=== PATIENT | female | born 1990 | race Caucasian/White ===

== ENCOUNTER 2018-12-14 04:05 | Emergency (ER) | payer MEDICAID ==
[~2018-12-14] VITALS: Ht 162.6 cm; Wt 90.9 kg
[2018-12-14] MEDS ORDERED: CYCL-1 PO (04:32)
[2018-12-14] MEDS ORDERED: ondansetron 4mg rapidly disintigrating tab PO ONE (05:40)
[2018-12-14] MEDS ORDERED: ketorolac trometh inj. 60 MG/2 ML VIAL IM ONE (05:40)
[2018-12-14] MEDS ORDERED: orphenadrine citrate 60mg/2ml inj. IM ONE (05:40)
[2018-12-14] MEDS ORDERED: HYDROcodone/acetaminophen 5mg/325mg tablet PO ONE (05:40)
[2018-12-14] MEDS ORDERED: LIDOcaine 5% patch TP ONE (05:40)
[2018-12-14] MEDS ORDERED: HYDR-3965 PO (07:48)
[2018-12-14] MEDS ORDERED: LIDO700A32 TOP (07:48)
[2018-12-14] MEDS ORDERED: triamcinolone acetonide 40mg/ml inj IM ONE (07:50)
[2018-12-14 08:11] VITALS: BP 129/74
== END 2018-12-14 08:13 | disposition home or self-care (01) ==
LOC: ER 04:06
DX: M53.3 Sacrococcygeal disorders, not elsewhere classified (principal); Z79.899 Other long term (current) drug therapy
CPT/HCPCS: 96372; 99284; J1885; J2360; J2405; J3301

== ENCOUNTER 2023-09-01 21:39 | Emergency (ER) | payer MEDICAID ==
[~2023-09-01] VITALS: Ht 162.6 cm; Wt 75.0 kg
[~2023-09-01 21:39] MED LIST: CYCL-1 PO; LIDO700A32 TOP
[2023-09-01 21:48] VITALS: BP 163/90; PULSE 113; RESP 18; TEMP 98; O2SAT 100
== END 2023-09-01 23:54 | disposition left against medical advice (07) ==
LOC: ER 21:40
DX: T19.2XXA Foreign body in vulva and vagina, initial encounter (principal); Z53.21 Procedure and treatment not carried out due to patient leaving prior to being seen by health care provider; Y92.89 Other specified places as the place of occurrence of the external cause
CPT/HCPCS: 99281